=== PATIENT | female | born 2000 | race Caucasian/White ===

== ENCOUNTER → 2024-09-04 08:31 | Outpatient (BNVA) | payer OTHER, SELFPAY | PROVIDERS: Visit Provider Podiatrist Foot & Ankle Surgery | DX: M79.671 Pain in right foot (principal); M79.672 Pain in left foot; M72.2 Plantar fascial fibromatosis; M62.461 Contracture of muscle, right lower leg; M62.462 Contracture of muscle, left lower leg | CPT/HCPCS: 73630 ==

== ENCOUNTER 2024-09-15 06:37 | Day surgery (SDC) | payer OTHER, SELFPAY ==
[2024-09-15] VITALS (11 sets, daily range): BP systolic 97–115; BP diastolic 65–77; PULSE 63–107; RESP 12–20; TEMP 36.1–36.8; O2SAT 99–100; BMI 22.4
[2024-09-15] MEDS: sodium chloride 0.9% 1,000 ML 30 ML IV (07:09)
[2024-09-15] MEDS: ondansetron 2 mg/ML SDV 2 mL 4 MG IVP (07:22)
--- NOTE | 2024-09-15 07:30 | ANES.PREANE2 ---
Pre-Anesthetic Assessment Height/Weight: Height 5 ft 4 in Weight 131 lb Temp Pulse Resp BP Pulse Ox O2 Del Method 98.2 F 85 18 115/77 100 Room Air 09/15/24 07:24 09/15/24 07:24 09/15/24 07:24 09/15/24 07:24 09/15/24 07:24 09/15/24 07:27 Preop Diagnosis: Plantar fasciitis and gastrocnemius equinus left lower extremity. Operation Date: 09/15/24 08:10 Proposed Procedures p Gastrocnemius Recession(Left) - Odin Caicedo DPM s Platelet Rich Plasma Injection Left Plantar Fascia(Left) - Odin Caicedo DPM Was Beta Adrian taken within 24 hours: N/A Was Clonidine taken within 24 hours: N/A Social No alcohol and No tobacco Exam alert, oriented x 3, clear to auscultation bilaterally and regular rate & rhythm Airway Submandibular: within normal limits Cervical ROM: within normal limits Mallampati: Class I Dentition: full Anesthetic Plan ASA status: 1 Anesthesia: General Other: No prior issues with anesthesia N.p.o. since yesterday evening Denies any cardiac or pulmonary issues METs greater than 4 Placement got very nauseous with IV placement. Zofran given. Will plan on obtaining blood for PRP in OR Plan for general anesthesia Medications/Allergies Home Medications ?Medication ?Instructions ?Recorded ?Confirmed ?Last Taken ?Type No Known Home Medications 09/14/24 09/14/24 Unknown History Allergies Allergy/AdvReac Type Severity Reaction Status Date / Time No Known Allergies Allergy Unverified 09/15/24 07:22 Current Medications Generic Name Dose Route Start Last Admin Trade Name Freq PRN Reason Stop Dose Admin Sodium Chloride 1,000 mls @ 30 mls/hr 09/15/24 06:45 09/15/24 07:09 Sodium Chloride 0.9% IV 09/16/24 06:44 30 mls/hr .Q24H JUNE Administration Ondansetron HCl 4 mg 09/15/24 06:41 09/15/24 07:22 Ondansetron 2 Mg/Ml Sdv 2 Ml IVP 4 mg Q5M PRN Administration NAUSEA AND VOMITING PFSH Anesthesia Social History Smoking and tobacco/nicotine status: never used tobacco/nicotine Second hand smoke exposure: No Alcohol intake: never Data Anesthesia Cardiac Studies: No Data to Display
[2024-09-15] MEDS: gabapentin 300 mg Capsule PO (07:38)
[2024-09-15] MEDS: CELEcoxib 200 mg Capsule 400 MG PO (07:45)
[2024-09-15] MEDS: midazolam 1 mg/mL INJ 2 mL 2 MG IVP (07:46)
--- NOTE | 2024-09-15 08:06 | W.PM.OPSUD ---
Surgery/Procedure H&P Update DATE OF PROCEDURE: September 15, 2024 DATE H&P PERFORMED: 09/15/24 H&P UPDATE INFORMATION: I have reviewed H&P completed within last 30 days, I have examined patient prior to procedure, No changes to prior documentation and Risks and benefits of the procedure reviewed PREOP DIAGNOSIS: Plantar fasciitis and gastrocnemius equinus left lower extremity. PLANNED PROCEDURE: Operation Date: 09/15/24 08:10 Proposed Procedures p Gastrocnemius Recession(Left) - Odin Caicedo DPM s Platelet Rich Plasma Injection Left Plantar Fascia(Left) - Odin Caicedo DPM
[2024-09-15] MEDS: ceFAZolin 2,000 mg SDV 2000 MG IVP (08:27)
[2024-09-15] MEDS: BUPivacaine 0.5% INJ 10 mL 20 ML INJECTION (08:55)
[2024-09-15] MEDS: BUPivacaine liposome 13.3 mg/mL SDV 20 mL 266 MG INJECTION (08:55)
--- NOTE | 2024-09-15 09:30 | P.OP_ITS ---
Operative Report Date of procedure: September 15, 2024 Pre-op diagnosis: Left gastrocnemius equinus. M62.471 Left plantar fasciitis. M72.2 Post-op diagnosis: Left gastrocnemius equinus. M62.471 Left plantar fasciitis. M72.2 Procedure done: Left gastrocnemius recession. CPT code 39438 Implants: 5-0 Monocryl, 4-0 nylon Specimens removed/disposition: No specimens were removed Pathology: No pathology Surgeon: Odin Caicedo DPM Survey Crew Chief: Maryan Estimated blood loss: 1 mL 18 minutes Urine output: See intraoperative documentation Complications: None Brief History: X-ray left right foot taken in clinic, see radiology report. No acute osseous injury. (2) Bilateral plantar fasciitis: Assessment & Plan: 23-year-old female with a history of bilateral plantar fasciitis presenting with chronic bilateral foot pain affecting daily functioning. The condition has persisted without significant improvement despite prior interventions. There is a pronounced, recurrent discomfort in the arches and heels. Imaging did not reveal bone spurs, supporting a soft tissue etiology. Conservative management and the potential for surgical intervention should symptoms persist were discussed. Plantar fascial fibromatosis M72.2 Diagnosed with bilateral plantar fasciitis. Treatment plan involves aggressive stretching, power step insoles, and specific footwear to maintain arch support. Surgical options discussed as a future possibility. Consider custom orthotics if [id number] options show benefits. - Stretch calf muscles every two hours to help alleviate pain. - Use Power Step Original insoles in your shoes. - Purchase supportive sandals for use around the house and during daily acti vities. - Avoid using Dr. Meadows's insoles; Power Steps are preferred. - Perform stretches using a towel or belt before getting out of bed. (3) Gastrocnemius equinus of both lower extremities: Plan In assessing the patient, consideration of the persistent bilateral plantar fasciitis focuses on addressing the chronic nature of her pain with conservative management techniques. The patient's history of unsuccessful past interventions such as steroid injections and oral medications guided the decision to recommend alternative conservative approaches, including consistent stretching and proper footwear. Previous imaging ruled out bone spurs, pointing towards soft tissue factors as the primary cause. If conservative measures offer no substantial relief, future surgical intervention, with its risks and benefits, remains a potential pathway. Further evaluation may include the use of PRP injections to enhance recovery tissue functionality if surgery becomes necessary. Continuing attention to footwear and stretching remains crucial for potential improvement. Patient states that she would like to proceed starting with her left lower extremity as her symptoms have been unresponsive to conservative treatment for greater than 1 year. Planning on gastrocnemius recession of the left lower extremity and platelet rich plasma injection to the left plantar fascia under anesthesia. Scheduled for outpatient surgery September 15, 2024. Procedure: Under mild sedation the patient was brought to the operating room and timeout is performed. Anesthesia was administered by the anesthesia service. Local stays injected by myself consisting of 20 cc of 0.5 send Marcaine and 20 cc of Exparel in a V-block fashion to the left posterior leg proximal to the planned operative site. Well-padded pneumatic tourniquet applied to left high calf. Patient was then positioned prone onto the operating table with appropriate padding and positioning. Left lower extremity was scrubbed, prepped and draped utilizing normal aseptic technique. Left foot and ankle were exanguinated with Esmarch bandage and tourniquet inflated to 250 mmHg. Attention was directed to the left posterior leg where gastrocnemius muscle was palpated and identified and approximately 13 cm proximal to the insertion of the Achilles tendon the aponeurosis of the gastrocnemius was palpated and a linear longitudinal send is made approximately 1.5 inches in length was made through skin with a #15 blade with dissection carried down to the and through crural fa scia to the layer of gastrocnemius aponeurosis utilizing sharp and blunt technique. Care was taken to retract and preserve neurovascular and tendinous structures. All bleeders were ligated and cauterized as necessary. From medial to lateral of the gastrocnemius aponeurosis was sharply released and with dorsiflexion intraoperatively there was improved dorsiflexion appreciated able to dorsiflex approximately 12 degrees with knee extended and flexed. The incision was irrigated skin solution and subcutaneous tissue reapproximated with 5-0 Monocryl and skin with 4-0 nylon. Plan was to perform platelet rich plasma injection to the left plantar fascia unfortunately harvested blood clot at and was unable to be spun through the [employer] machine. Dry needling was performed of the plantar fascia with a 22-gauge needle. Incision site was dressed with Xeroform 4 x 4 gauze Kerlix and Coban covered with stockinette, dry needling side of the medial posterior heel covered with an OpSite. Tourniquet was deflated and a prompt hyperemic response was noted to the distal digits of the left foot. Patient tolerated the procedure and anesthesia well and was transferred to the PACU with vital signs stable and vascular status intact. Following a period of postoperative monitoring she will be discharged home without home care instructions and scheduled follow-up.
[2024-09-15] MEDS: meperidine 50 mg/mL INJ 12.5 MG IVP (09:54)
--- NOTE | 2024-09-15 10:00 | PC.NURSE ---
Demerol given for shivering
[2024-09-15] MEDS: HYDROcodone-acetaminophen 7.5-325 mg Tablet 1 TAB PO (10:20)
--- NOTE | 2024-09-15 11:10 | ANE.PACU2 ---
Inpatient post-anesthesia follow up: Airway intact: Yes Vital signs: Temperature 97.7 F Pulse Rate 65 Respiratory Rate 18 Blood Pressure 109/67 Pulse Oximetry 100 Oxygen Delivery Me thod Room Air Oxygen Flow Rate Fraction of Inspir ed Oxygen Hydration adequate: Yes Nausea and vomiting: No Pain level: 1 Mental status: Baseline
[2024-09-19 07:12] LABS: OR HCG Qualitative Urine Negative (Negative)
== END 2024-09-15 11:10 | disposition home or self-care (01) ==
PROVIDERS: Student in an Organized Health Care Education/Training Program; Visit Provider Podiatrist Foot & Ankle Surgery
PROC: (CPT 27687; principal; 2024-09-15 08:00)
DX: M62.471 Contracture of muscle, right ankle and foot (principal); M72.2 Plantar fascial fibromatosis
CPT/HCPCS: 27687; 20560; 81025; C9290; J0690; J2175; J2250; J2371; J2405; J3010; J3490; J7030; J9999

== ENCOUNTER → 2025-03-06 13:45 | Outpatient (BNVA) | payer OTHER, SELFPAY | PROVIDERS: Visit Provider Nurse Practitioner | DX: R68.89 Other general symptoms and signs (principal) | CPT/HCPCS: 87400; 87426 ==